=== PATIENT | female | born 1985 | race Asian ===

== ENCOUNTER 2018-08-10 18:40 | Emergency (ER) | payer OTHER ==
[~2018-08-10] VITALS: Ht 152.4 cm; Wt 74.4 kg
[~2018-08-10 18:40] MED LIST: CETI10TA PO; LEVO0.0529 PO; PANT40TA PO; ZANTAC 75 PO
[2018-08-10 19:40] VITALS: BP 104/61; TEMP 98.2
== END 2018-08-10 19:42 | disposition home or self-care (01) ==
LOC: ED 18:40
DX: T63.301A Toxic effect of unspecified spider venom, accidental (unintentional), initial encounter (principal); L29.9 Pruritus, unspecified
CPT/HCPCS: 96372; 99282; J2930

== ENCOUNTER 2019-02-02 20:24 | Emergency (ER) | payer OTHER ==
[~2019-02-02] VITALS: Ht 152.4 cm; Wt 74.4 kg
[2019-02-02 20:30] VITALS: TEMP 99.4
[2019-02-02 22:35] VITALS: BP 100/60
== END 2019-02-02 22:36 | disposition home or self-care (01) ==
LOC: ED 20:24
DX: O23.592 Infection of other part of genital tract in pregnancy, second trimester (principal); Z3A.20 20 weeks gestation of pregnancy
CPT/HCPCS: 81000; 87210; 87490; 87590; 96372; 99283; 99284; J0696

== ENCOUNTER 2020-05-19 07:51 | Outpatient (CLI) | payer OTHER | END 2020-05-19 19:31 | disposition home or self-care (01) | LOC: NM 07:51 | PROVIDERS: ATTEND Internal Medicine Gastroenterology | DX: R11.11 Vomiting without nausea (principal); R10.13 Epigastric pain | CPT/HCPCS: A9541 ==

== ENCOUNTER 2022-09-15 21:36 | Emergency (ER) | payer OTHER ==
[~2022-09-15] VITALS: Ht 152.4 cm; Wt 79.4 kg
[2022-09-16 00:35] VITALS: BP 115/71; TEMP 98.5
== END 2022-09-16 00:35 | disposition home or self-care (01) ==
LOC: ED 21:36
DX: B34.9 Viral infection, unspecified (principal); Z20.822 Contact with and (suspected) exposure to COVID-19
CPT/HCPCS: 87502; 87635; 87651; 96372; 99282; J1100; U0003

== ENCOUNTER 2022-10-18 05:27 | Emergency (ER) | payer OTHER ==
[~2022-10-18] VITALS: Ht 152.4 cm; Wt 78.9 kg
[2022-10-18 05:35] VITALS: TEMP 99.1
[2022-10-18 06:08] LABS: PLATELET COUNT 237 K/uL (152-353)
[2022-10-18 07:33] VITALS: BP 131/78
== END 2022-10-18 07:39 | disposition home or self-care (01) ==
LOC: ED 05:27
PROVIDERS: Family Medicine
DX: B34.9 Viral infection, unspecified (principal); J32.9 Chronic sinusitis, unspecified; R50.9 Fever, unspecified; R05.9 Cough, unspecified; R11.0 Nausea
CPT/HCPCS: 85027; 87502; 87651; 96372; 99283; J1885

== ENCOUNTER 2022-10-27 20:29 | Emergency (ER) | payer OTHER ==
[~2022-10-27] VITALS: Ht 152.4 cm; Wt 79.8 kg
[2022-10-27 22:25] VITALS: BP 141/82; TEMP 99
== END 2022-10-27 22:25 | disposition home or self-care (01) ==
LOC: ED 20:29
DX: J10.1 Influenza due to other identified influenza virus with other respiratory manifestations (principal)
CPT/HCPCS: 81025; 87502; 87651; 94664; 99283

== ENCOUNTER 2022-11-09 20:25 | Emergency (ER) | payer OTHER ==
[~2022-11-09] VITALS: Ht 153.7 cm; Wt 77.1 kg
[2022-11-09 20:30] VITALS: TEMP 98.4
[2022-11-09 21:00] VITALS: BP 126/88
== END 2022-11-09 21:30 | disposition home or self-care (01) ==
LOC: ED 20:25
DX: N39.0 Urinary tract infection, site not specified (principal)
CPT/HCPCS: 81000; 87077; 87086; 87088; 87186; 99282